=== PATIENT | male | born 2000 | race Caucasian/White ===

== ENCOUNTER → 2019-07-04 18:49 | Outpatient (BNVA) | payer SELFPAY | PROVIDERS: Family Provider Pediatrics Adolescent Medicine; PCP Pediatrics Adolescent Medicine; Visit Provider Nurse Practitioner Family | DX: R30.0 Dysuria (principal); N39.0 Urinary tract infection, site not specified; R35.0 Frequency of micturition | CPT/HCPCS: 80053; 81000; 81001; 87491; 87591 ==

== ENCOUNTER 2019-09-25 14:06 | Outpatient (CLI) | payer SELFPAY ==
--- NOTE | 2019-09-25 14:17 | US_ITS ---
WS: [id number] ULTRASOUND BLADDER CLINICAL INFORMATION: URINARY URGENCY COMPARISON: None. FINDINGS: Urinary bladder: The urinary bladder is morphologically normal. No free fluid is seen in the pelvis. Bladder volume Prevoid bladder estimated volume 64.9 cc Postvoid bladder: estimated volume 14.2 cc ml. / bladder [id number] IMPRESSION: Prevoid bladder volume 65 cc. Postvoid bladder volume 14.2 cc with incomplete b ut adequate emptying.
== END 2019-09-25 14:07 | disposition home or self-care (01) ==
LOC: RAD 14:11
PROVIDERS: PCP Pediatrics Adolescent Medicine; Visit Provider Nurse Practitioner Family
DX: R39.15 Urgency of urination (principal)
CPT/HCPCS: 76857

== ENCOUNTER → 2019-10-26 15:27 | Outpatient (BNVA) | payer SELFPAY | PROVIDERS: PCP Pediatrics Adolescent Medicine; Referring Provider Nurse Practitioner Family; Visit Provider Nurse Practitioner Family | DX: R39.9 Unspecified symptoms and signs involving the genitourinary system (principal) | CPT/HCPCS: 81001 ==

== ENCOUNTER → 2019-11-26 08:15 | Outpatient (BNVA) | payer SELFPAY | PROVIDERS: PCP Pediatrics Adolescent Medicine; Visit Provider Urology | DX: R39.9 Unspecified symptoms and signs involving the genitourinary system (principal) | CPT/HCPCS: 81001 ==

== ENCOUNTER → 2020-01-26 08:21 | Outpatient (BNVA) | payer SELFPAY | PROVIDERS: PCP Pediatrics Adolescent Medicine; Visit Provider Urology | DX: R39.9 Unspecified symptoms and signs involving the genitourinary system (principal) | CPT/HCPCS: 81003 ==

== ENCOUNTER → 2020-05-24 13:33 | Outpatient (BNVA) | payer SELFPAY | PROVIDERS: PCP Pediatrics Adolescent Medicine; Visit Provider Urology | DX: N41.1 Chronic prostatitis (principal); F17.210 Nicotine dependence, cigarettes, uncomplicated | CPT/HCPCS: 81003 ==

== ENCOUNTER → 2020-08-24 15:28 | Outpatient (BNVA) | payer SELFPAY | PROVIDERS: PCP Pediatrics Adolescent Medicine; Visit Provider Urology | DX: R39.9 Unspecified symptoms and signs involving the genitourinary system (principal); N41.1 Chronic prostatitis | CPT/HCPCS: 81003 ==

== ENCOUNTER → 2020-11-29 14:51 | Outpatient (BNVA) | payer SELFPAY | PROVIDERS: PCP Pediatrics Adolescent Medicine; Visit Provider Urology | DX: R39.9 Unspecified symptoms and signs involving the genitourinary system (principal); N41.1 Chronic prostatitis | CPT/HCPCS: 81003 ==